=== PATIENT | female | born 1970 | race African-American/Black ===

== ENCOUNTER 2024-05-12 19:23 | Emergency (ER) | payer MEDICARE, MEDICAID ==
[~2024-05-12] VITALS: Ht 154.9 cm; Wt 83.9 kg
[2024-05-12] MEDS ORDERED: BISM262O28 PO (19:39)
[2024-05-12] MEDS ORDERED: FLUO20CA36 PO (19:39)
[2024-05-12] MEDS ORDERED: GUAI237L98 PO (19:39)
[2024-05-12] MEDS ORDERED: MAG30ORA PO (19:39)
[2024-05-12] MEDS ORDERED: MAGN400O6 PO (19:39)
[2024-05-12] MEDS ORDERED: IBUP-1955 PO (19:39)
[2024-05-12] MEDS ORDERED: ACET-2154 PO (19:39)
[2024-05-12] MEDS ORDERED: DIPH25CA83 PO (19:39)
[2024-05-12] MEDS ORDERED: HYDR50CA PO (19:39)
[2024-05-12] MEDS ORDERED: ACETAMINOPHEN 500 MG TABLET ONE (19:58)
[2024-05-12] MEDS ORDERED: LORAZEPAM 0.5 MG TABLET ONE (19:59)
[2024-05-12] MEDS: ACETAMINOPHEN 500 MG TABLET PO ONE (20:00)
[2024-05-12] MEDS: LORAZEPAM 0.5 MG TABLET PO ONE (20:00)
[2024-05-12 20:14] LABS: ALBUMIN 3.2 g/dL (3.4-5.0); BILIRUBIN,TOTAL 0.3 mg/dL (0.2-1.0); CALCIUM 8.8 mg/dL (8.5-10.1); CREATININE 0.6 mg/dL (0.6-1.3); POTASSIUM 4.3 mmol/L (3.5-5.1); TOTAL PROTEIN, SERUM 6.9 g/dL (6.4-8.2)
[2024-05-13] MEDS ORDERED: LORAZEPAM 0.5 MG TABLET ONE (07:55)
[2024-05-13] MEDS: LORAZEPAM 0.5 MG TABLET PO ONE (07:59)
[2024-05-13] MEDS ORDERED: LORA0.5T48 PO (14:01)
[2024-05-13 14:51] VITALS: BP 140/78; O2SAT 98
== END 2024-05-13 14:51 | disposition home or self-care (01) ==
LOC: ER 19:31
DX: R45.851 Suicidal ideations (principal); R51.9 Headache, unspecified; F10.10 Alcohol abuse, uncomplicated; I10 Essential (primary) hypertension; F41.9 Anxiety disorder, unspecified; F22 Delusional disorders; F32.9 Major depressive disorder, single episode, unspecified; F17.200 Nicotine dependence, unspecified, uncomplicated; Z79.899 Other long term (current) drug therapy; Y90.9 Presence of alcohol in blood, level not specified
CPT/HCPCS: 36415; 98960; A4606; A4663; A9150